=== PATIENT | female | born 1930 | race Caucasian/White ===

== ENCOUNTER 2017-06-18 12:56 | Inpatient (IN) | payer MEDICARE, OTHER ==
[~2017-06-18] VITALS: Ht 160 cm; Wt 72.6 kg
[2017-06-18] MEDS ORDERED: Morphine Sulfate 4mg/ml Inj IVP ONE (13:30)
[2017-06-18] MEDS ORDERED: Ketorolac 30mg Inj IV ONE (13:30)
[2017-06-18 13:50] LABS: BASOPHILS % (AUTO) 0.6 % (0.0-2.0); EOSINOPHILS % (AUTO) 0.9 % (0.0-3.0); HEMATOCRIT 36.8 % (37.0-47.0); HEMOGLOBIN 12.3 G/DL (12.0-16.0); LYMPHOCYTES % (AUTO) 20.5 % (20.0-45.0); MEAN CORPUSCULAR VOLUME 87 FL (80-99); MONOCYTES % (AUTO) 7.5 % (1.0-10.0); NEUTROPHILS % (AUTO) 70.5 % (45.0-75.0); PLATELET COUNT 185 K/UL (150-450); RED BLOOD COUNT 4.23 M/UL (4.20-5.40); RED CELL DISTRIBUTION WIDTH 13.2 % (11.6-14.8); WHITE BLOOD COUNT 9.3 K/UL (4.8-10.8)
[2017-06-18 13:59] LABS: ANION GAP 7 mmol/L (5-15); BLOOD UREA NITROGEN 35 mg/dL (7-18); CALCIUM 9.4 MG/DL (8.5-10.1); CARBON DIOXIDE 27 MMOL/L (21-32); CHLORIDE 106 MMOL/L (98-107); CREATININE 1.4 MG/DL (0.55-1.30); SODIUM 140 MMOL/L (136-145)
[2017-06-18 14:00] VITALS: BP 127/61
--- NOTE | 2017-06-18 14:01 | Diagnostic Imaging Report ---
Indication: Dyspnea Comparison: None A single view chest radiograph was obtained. Findings: No definite infiltrate or pulmonary vascular congestion identified. The heart is enlarged. The aorta is mildly enlarged consistent with atherosclerotic vascular disease. The bones are osteopenic. Impression: No acute disease
[2017-06-18 14:09] LABS: ALANINE AMINOTRANSFERASE 19 U/L (12-78); ALBUMIN 3.3 G/DL (3.4-5.0); ALBUMIN/GLOBULIN RATIO 0.8 (1.0-2.7); ALKALINE PHOSPHATASE 117 U/L (46-116); ASPARTATE AMINO TRANSFERASE 16 U/L (15-37); BILIRUBIN,TOTAL 0.4 MG/DL (0.2-1.0); CREATINE KINASE 34 U/L (26-308)
[2017-06-18 14:21] LABS: APPEARANCE,URINE SLIGHTLY CLOUDY; BILIRUBIN, URINE NEGATIVE (NEGATIVE); COLOR,URINE PALE YELLOW; GLUCOSE, URINE (UA) NEGATIVE (NEGATIVE); KETONES,URINE NEGATIVE (NEGATIVE); LEUKOCYTE ESTERASE ,URINE 3+ (NEGATIVE); NITRITE,URINE NEGATIVE (NEGATIVE); PH,URINE 5 (4.5-8.0); PROTEIN,URINE 1+ (NEGATIVE); UROBILINOGEN,URINE NORMAL MG/DL (0.0-1.0)
--- NOTE | 2017-06-18 14:42 | Diagnostic Imaging Report ---
Indication: Chest pain. Trauma Technique: Continuous helical transaxial imaging of the chest was obtained from the thoracic inlet to the upper abdomen. No intravenous contrast was administered. Coronal 2-D reformats were also obtained. Total Dose length Product (DLP): 760.[address] Dose Index Volume (CTDIvol): 19.35 mGy Comparison: none Findings: There is no pneumothorax. Lungs are essentially clear with the exception of some minimal basilar scarring or atelectasis. No mediastinal fluid or hematoma identified. The aorta is moderately calcified and ectatic. There are calcifications in the mediastinum and willis which may be on the basis of old granulomatous disease. There is a moderate size hiatal hernia. Osseous structures are grossly intact. There is a fracture of the L1 and L2 vertebra. These appear old. Endplate spurs are noted in the midportion of the thoracic spine. The bones are osteopenic. There is slight misregistration on the sagittal reconstructions with regard to the sternum, which is not likely fractured. IMPRESSION: No acute injury identified. Atherosclerotic disease Degenerative changes of the spine. Lumbar vertebral fractures probably old. Old granulomatous disease Hiatal hernia The CT scanner at [facility] is accredited by the [employer] and the scans are performed using dose optimization techniques as appropriate to a performed exam including Automatic Exposure control.
[2017-06-18] MEDS ORDERED: HYDROmorphone 1mg/ml Carpuject IVP ONE (15:15)
[2017-06-18] MEDS ORDERED: 1/2 NS 1000ml IV ONE (15:26)
[2017-06-18 16:00] VITALS: BP 129/65
[2017-06-18] MEDS ORDERED: Nitroglycerin Subl 0.4mg tab SL PRN (17:00)
[2017-06-18] MEDS ORDERED: Morphine Sulfate 2mg/ml Inj IVP PRN (17:00)
--- NOTE | 2017-06-18 17:01 | Emergency Room Report ---
History of Present Illness General Chief Complaint: Chest Pain Source: Patient, Family Member Present Illness HPI Patient fell yesterday. This was non-syncopal. She caught herself. Unclear if hit chest or had force on chest due to catching self. Since that time she's had severe positional and exertional chest pain that's sternal. It's caused weakness. She denies any fevers or chills. There was no loss of consciousness. The pain is severe when she moves or touches the area. Pain rated 10/10, sharp and aching. No medicine taken for pain. She had a CT of her chest in the past which revealed an abnormality which daughter states is close to area where this pain is. No cough, dyspnea. No other joint pain. Patient has history of atrial fibrillation. She is not taking any blood thinners at this time. No NVD, abdominal pain dysuria, change in bowels, other joint or head pain. R eye blindness Allergies: Coded Allergies: No Known Allergies (Unverified , 06/18/17) Patient History Past Medical History: see triage record, AFib Social History: Denies: smoking, alcohol use, drug use Social History Narrative with Daughter - speaks Gu[place]ese Last Menstrual Period: n/a Now: No Reviewed Nursing Documentation: PMH: Agreed; PSxH: Agreed Nursing Documentation-PMH Hx Hypertension: Yes Review of Systems All Other Systems: negative except mentioned in HPI Physical Exam Vital Signs Date Time Temp Pulse Resp B/P (MAP) Pulse Ox O2 Delivery O2 Flow Rate FiO2 06/18/17 12:50 98.0 88 16 116/54 99 Room Air 98.1 Sp02 EP Interpretation: reviewed, normal General Appearance: no apparent distress, alert, thin, other - frail, Chronically Ill Head: normocephalic Eyes: right eye other - opacity of R cornea ENT: moist mucus membranes Neck: supple, no bony tend Respiratory: lungs clear, normal breath sounds, other - severe CWT sternum without crepitus Cardiovascular #1: regular rate, rhythm Cardiovascular #2: 2+ radial (R) Gastrointestinal: normal inspection, normal bowel sounds, non tender, no mass, non-distended, scaphoid Genitourinary: no CVA tenderness Musculoskeletal: back normal, normal range of motion, pelvis stable Neurologic: alert, motor strength/tone normal, DTRs symmetric, sensory intact, oriented - X2 Psychiatric: mood/affect normal Skin: normal inspection, warm/dry Medical Decision Making Diagnostic Impression: Primary Impression: Chest pain Qualified Codes: R07.9 - Chest pain, unspecified Additional Impressions: UTI (urinary tract infection) Qualified Codes: N30.00 - Acute cystitis without hematuria Sternal fracture Qualified Codes: S22.20XA - Unspecified fracture of sternum, initial encounter for closed fracture ER Course The patient presents with chest pain after fall. The differential includes acute myocardial infarction acute coronary syndrome, costochondritis, sternal fracture, costochondral fracture, retrosternal hematoma, sternomanubrial dissociation amongst others. The pain is quite severe at this time. Evaluation B with EKG, chest x-ray, CT of the chest and labs. EKG without injury. CXR with tortuous aorta. CT allegedly with no fx or injury. Labs with renal insufficiency, pyuria. Patient still with significant pain. Initially refused repeat morphine. Finally took repeat dose with decrease in pain, but with nausea. Zofran repeated with improvement. Discussed with daughter my high suspicion of fracture versus other sternal injury. She is requesting MRI. Also patient needs repeat troponins and somewhat exertional quality of chest pain. Admit telemetry, Dr. Oakley. Discussed with Dr. Cameron. Laboratory Tests Test 06/18/17 13:34 06/18/17 13:55 06/18/17 20:00 White Blood Count 9.3 K/UL (4.8-10.8) Red Blood Count 4.23 M/UL (4.20-5.40) Hemoglobin 12.3 G/DL (12.0-16.0) Hematocrit 36.8 % (37.0-47.0) L Mean Corpuscular Volume 87 FL (80-99) Mean Corpuscular Hemoglobin 29.1 PG (27.0-31.0) Mean Corpuscular Hemoglobin Concent 33.4 G/DL (32.0-36.0) Red Cell Distribution Width 13.2 % (11.6-14.8) Platelet Count 185 K/UL (150-450) Mean Platelet Volume 8.9 FL (6.5-10.1) Neutrophils (%) (Auto) 70.5 % (45.0-75.0) Lymphocytes (%) (Auto) 20.5 % (20.0-45.0) Monocytes (%) (Auto) 7.5 % (1.0-10.0) Eosinophils (%) (Auto) 0.9 % (0.0-3.0) Basophils (%) (Auto) 0.6 % (0.0-2.0) Prothrombin Time 10.4 SEC (9.30-11.50) Prothrombin Time INR 1.0 (0.9-1.1) PTT 30 SEC (23-33) Sodium Level 140 MMOL/L (136-145) Potassium Level 4.0 MMOL/L (3.5-5.1) Chloride Level 106 MMOL/L (98-107) Carbon Dioxide Level 27 MMOL/L (21-32) Anion Gap 7 mmol/L (5-15) Blood Urea Nitrogen 35 mg/dL (7-18) H Creatinine 1.4 MG/DL (0.55-1.30) H Estimate Glomerular Filtration Rate mL/min (>60) Glucose Level 118 MG/DL (74-106) H Calcium Level 9.4 MG/DL (8.5-10.1) Total Bilirubin 0.4 MG/DL (0.2-1.0) Aspartate Amino Transferase (AST) 16 U/L (15-37) Alanine Aminotransferase (ALT) 19 U/L (12-78) Alkaline Phosphatase 117 U/L (46-116) H Total Creatine Kinase 34 U/L (26-308) Troponin I 0.000 ng/mL (0.000-0.056) 0.000 ng/mL (0.000-0.056) Pro-B-Type Natriuretic Peptide 501 pg/mL (0-125) H Total Protein 7.2 G/DL (6.4-8.2) Albumin 3.3 G/DL (3.4-5.0) L Globulin 3.9 g/dL Albumin/Globulin Ratio 0.8 (1.0-2.7) L Urine Color Pale yellow Urine Appearance Slightly cloudy Urine pH 5 (4.5-8.0) Urine Specific [place] 1.015 (1.005-1.035) Urine Protein 1+ (NEGATIVE) H Urine Glucose (UA) Negative (NEGATIVE) Urine Ketones Negative (NEGATIVE) Urine Occult Blood Negative (NEGATIVE) Urine Nitrite Negative (NEGATIVE) Urine Bilirubin Negative (NEGATIVE) Urine Urobilinogen Normal MG/DL (0.0-1.0) Urine Leukocyte Esterase 3+ (NEGATIVE) H Urine RBC 2-4 /HPF (0 - 2) H Urine WBC 30-40 /HPF (0 - 2) H Urine Squamous Epithelial Cells Few /LPF (NONE/OCC) Urine Bacteria Few /HPF (NONE) EKG Diagnostic Results Rate: normal Rhythm: NSR ST Segments: no acute changes Rhythm Strip Diag. Results EP Interpretation: yes Rhythm: NSR, no PVC's, no ectopy Chest X-Ray Diagnostic Results Chest X-Ray Diagnostic Results : Chest X-Ray Ordered: Yes # of Views/Limited/Complete: 1 View Indication: Chest Pain EP Interpretation: Yes CT/MRI/US Diagnostic Results CT/MRI/US Diagnostic Results : Imaging Test Ordered: chest Impression No significant pathology identified Last Vital Signs Date Time Temp Pulse Resp B/P (MAP) Pulse Ox O2 Delivery O2 Flow Rate FiO2 06/18/17 14:05 98.0 06/18/17 14:00 72 20 127/61 98 Room Air Status: improved Disposition: ADMITTED INPATIENT Condition: Serious Referrals: NON PHYSICIAN (PCP) Alfonso Callejas M.D. Jun 18, 2017 17:01
[2017-06-18] MEDS ORDERED: PRILOSEC OTC20 MG ORAL (17:10)
[2017-06-18] MEDS ORDERED: LEVOTHYROXINE75 MCG ORAL (17:10)
[2017-06-18] MEDS ORDERED: NORVASC5 MG ORAL (17:10)
[2017-06-18] MEDS ORDERED: Mylanta II UD 30ml ORAL PRN (17:15)
[2017-06-18] MEDS ORDERED: Albuterol/Ipratropium 3ml neb HHN PRN (17:16)
[2017-06-18] MEDS ORDERED: Norco 5mg/325mg tab ORAL PRN (17:20)
[2017-06-18] MEDS ORDERED: Morphine Sulfate 4mg/ml Inj IVP PRN (17:20)
[2017-06-18] MEDS ORDERED: HYDROcodone/Acetamin 7.5/325 tab ORAL PRN (17:21)
[2017-06-18] MEDS ORDERED: Miralax 17gm pkt ORAL PRN (17:22)
[2017-06-18 20:00] VITALS: BP 155/68
[2017-06-18] MEDS: Docusate 100mg cap ORAL SCH ×2 (20:50→20:57)
[2017-06-18] MEDS: Heparin 5000 units/ml inj SUBQ SCH ×2 (20:51→20:57)
[2017-06-18] MEDS ORDERED: cefTRIAXone 1 GM in D5W 55 ML IVPB ONE (23:15)
[2017-06-19] VITALS: BP 137/73
[2017-06-19 04:00] VITALS: BP 136/71
[2017-06-19 08:00] VITALS: BP 130/76
[2017-06-19] MEDS: Aspirin Baby 81mg ORAL SCH (08:32)
[2017-06-19] MEDS: Docusate 100mg cap ORAL SCH ×2 (08:33→21:53)
[2017-06-19] MEDS: Heparin 5000 units/ml inj SUBQ SCH ×2 (08:36→21:58)
[2017-06-19 09:07] LABS: EOSINOPHILS % (AUTO) 1.2 % (0.0-3.0); HEMATOCRIT 37.8 % (37.0-47.0); HEMOGLOBIN 12.7 G/DL (12.0-16.0); LYMPHOCYTES % (AUTO) 21.3 % (20.0-45.0); MEAN CORPUSCULAR VOLUME 87 FL (80-99); MONOCYTES % (AUTO) 8.5 % (1.0-10.0); NEUTROPHILS % (AUTO) 67.9 % (45.0-75.0); PLATELET COUNT 179 K/UL (150-450); RED BLOOD COUNT 4.35 M/UL (4.20-5.40); RED CELL DISTRIBUTION WIDTH 13.2 % (11.6-14.8); WHITE BLOOD COUNT 4.6 K/UL (4.8-10.8)
[2017-06-19 09:44] LABS: ANION GAP 7 mmol/L (5-15); BLOOD UREA NITROGEN 28 mg/dL (7-18); CALCIUM 8.6 MG/DL (8.5-10.1); CARBON DIOXIDE 29 MMOL/L (21-32); CHLORIDE 103 MMOL/L (98-107); CHOLESTEROL 165 MG/DL (< 200); CREATININE 1.3 MG/DL (0.55-1.30); HDL CHOLESTEROL 54 MG/DL (40-60); POTASSIUM 3.9 MMOL/L (3.5-5.1); SODIUM 139 MMOL/L (136-145); TRIGLYCERIDES 74 MG/DL (30-150)
--- NOTE | 2017-06-19 09:48 | Cardiac Electrophysiology PN ---
Subjective Subjective [id number] Objective Last 24 Hour Vital Signs Date Time Temp Pulse Resp B/P (MAP) Pulse Ox O2 Delivery O2 Flow Rate FiO2 06/19/17 07:40 71 16 Room Air 21 06/19/17 04:00 63 06/19/17 04:00 97.7 67 20 136/71 98 Room Air 97.7 06/19/17 00:00 64 06/19/17 00:00 96.8 64 20 137/73 94 Room Air 96.8 06/18/17 20:00 97.3 69 20 155/68 96 Room Air 97.3 06/18/17 20:00 70 06/18/17 17:52 98.0 76 20 129/65 100 Room Air 98.0 06/18/17 16:00 76 20 129/65 100 Room Air 06/18/17 14:05 98.0 06/18/17 14:05 98.0 06/18/17 14:00 72 20 127/61 98 Room Air 06/18/17 14:00 16 Room Air 06/18/17 13:26 98.0 06/18/17 13:26 98.0 06/18/17 13:15 85 17 Room Air 06/18/17 12:50 98.0 88 16 116/54 99 Room Air 98.1 Intake and Output 06/18/17 06/19/17 19:00 07:00 Intake Total 30 ml 949 ml Output Total 150 ml Balance -120 ml 949 ml Intake Oral 80 ml IV Total 30 ml 869 ml Output Urine Total 100 ml Emesis 50 ml # Voids 2 3 Laboratory Tests Test 06/18/17 13:34 06/18/17 13:55 06/18/17 20:00 06/19/17 08:30 White Blood Count 9.3 K/UL (4.8-10.8) 4.6 K/UL (4.8-10.8) #L Red Blood Count 4.23 M/UL (4.20-5.40) 4.35 M/UL (4.20-5.40) Hemoglobin 12.3 G/DL (12.0-16.0) 12.7 G/DL (12.0-16.0) Hematocrit 36.8 % (37.0-47.0) L 37.8 % (37.0-47.0) Mean Corpuscular Volume 87 FL (80-99) 87 FL (80-99) Mean Corpuscular Hemoglobin 29.1 PG (27.0-31.0) 29.1 PG (27.0-31.0) Mean Corpuscular Hemoglobin Concent 33.4 G/DL (32.0-36.0) 33.5 G/DL (32.0-36.0) Red Cell Distribution Width 13.2 % (11.6-14.8) 13.2 % (11.6-14.8) Platelet Count 185 K/UL (150-450) 179 K/UL (150-450) Mean Platelet Volume 8.9 FL (6.5-10.1) 9.4 FL (6.5-10.1) Neutrophils (%) (Auto) 70.5 % (45.0-75.0) 67.9 % (45.0-75.0) Lymphocytes (%) (Auto) 20.5 % (20.0-45.0) 21.3 % (20.0-45.0) Monocytes (%) (Auto) 7.5 % (1.0-10.0) 8.5 % (1.0-10.0) Eosinophils (%) (Auto) 0.9 % (0.0-3.0) 1.2 % (0.0-3.0) Basophils (%) (Auto) 0.6 % (0.0-2.0) 1.0 % (0.0-2.0) Prothrombin Time 10.4 SEC (9.30-11.50) Prothromb Time International Ratio 1.0 (0.9-1.1) Activated Partial Thromboplast Time 30 SEC (23-33) Sodium Level 140 MMOL/L (136-145) Pending Potassium Level 4.0 MMOL/L (3.5-5.1) Pending Chloride Level 106 MMOL/L (98-107) Pending Carbon Dioxide Level 27 MMOL/L (21-32) Pending Anion Gap 7 mmol/L (5-15) Blood Urea Nitrogen 35 mg/dL (7-18) H Pending Creatinine 1.4 MG/DL (0.55-1.30) H Pending Estimat Glomerular Filtration Rate mL/min (>60) Pending Glucose Level 118 MG/DL (74-106) H Pending Calcium Level 9.4 MG/DL (8.5-10.1) Pending Total Bilirubin 0.4 MG/DL (0.2-1.0) Aspartate Amino Transf (AST/SGOT) 16 U/L (15-37) Alanine Aminotransferase (ALT/SGPT) 19 U/L (12-78) Alkaline Phosphatase 117 U/L (46-116) H Total Creatine Kinase 34 U/L (26-308) Troponin I 0.000 ng/mL (0.000-0.056) 0.000 ng/mL (0.000-0.056) 0.003 ng/mL (0.000-0.056) Pro-B-Type Natriuretic Peptide 501 pg/mL (0-125) H Total Protein 7.2 G/DL (6.4-8.2) Albumin 3.3 G/DL (3.4-5.0) L Globulin 3.9 g/dL Albumin/Globulin Ratio 0.8 (1.0-2.7) L Urine Color Pale yellow Urine Appearance Slightly cloudy Urine pH 5 (4.5-8.0) Urine Specific [place] 1.015 (1.005-1.035) Urine Protein 1+ (NEGATIVE) H Urine Glucose (UA) Negative (NEGATIVE) Urine Ketones Negative (NEGATIVE) Urine Occult Blood Negative (NEGATIVE) Urine Nitrite Negative (NEGATIVE) Urine Bilirubin Negative (NEGATIVE) Urine Urobilinogen Normal MG/DL (0.0-1.0) Urine Leukocyte Esterase 3+ (NEGATIVE) H Urine RBC 2-4 /HPF (0 - 2) H Urine WBC 30-40 /HPF (0 - 2) H Urine Squamous Epithelial Cells Few /LPF (NONE/OCC) Urine Bacteria Few /HPF (NONE) Hemoglobin A1c 5.5 % (4.3-6.0) Magnesium Level Pending Triglycerides Level Pending Cholesterol Level Pending LDL Cholesterol Pending HDL Cholesterol Pending Cholesterol/HDL Ratio Pending Thyroid Stimulating Hormone (TSH) Pending Fortino Gonzalez MD Jun 19, 2017 09:48
[2017-06-19] MEDS ORDERED: Lexiscan 0.4mg/5ml syringe IV PRN (10:00)
--- NOTE | 2017-06-19 11:25 | History and Physical ---
History of Present Illness General Date patient seen: Jun 19, 2017 Time patient seen: 11:25 Reason for Hospitalization: Chest Pain Present Illness HPI 86y/o female with pmh of HTN, hypothyroidism GERD who presents with chest pain s /p fall. Per daughter, pt fell while in kitched. She may have tripped over a rug. Denies dizziness, chest pain, SOB prior to or during fall. She was able to catch herself. No LOC or head truama. She had chest pain afterwards described as sharp substernal pain w/o radiation. Unclear if hit chest or had force on chest due to catching self. Since that time she's had severe positional and exertional chest pain that's substernal. Pain is 10/10, severe drew when she moves or touches the area. Also w/ pain when taking a deep breath in. Denies f/c , n/v, d/c, SOB, abd pain, cough. In ED, CXR and CT chest showed no e/o acute abnormality. Daughter requesting MRI chest. Allergies: Coded Allergies: No Known Allergies (Unverified , 06/18/17) Medication History Scheduled Amlodipine Besylate (Norvasc), 5 MG ORAL DAILY, (Reported) Levothyroxine Sodium* (Levothyroxine Sodium*), 75 MCG ORAL DAILY, (Reported) Omeprazole Magnesium (Prilosec Otc), 20 MG ORAL DAILY, (Reported) Patient History History Provided By: Patient, Family Member, Medical Record Healthcare decision maker N Resuscitation status Full Code Advanced Directive on File Past Medical/Surgical History Past Medical/Surgical History: (1) Hypothyroidism (2) GERD (gastroesophageal reflux disease) (3) HTN (hypertension) Family History Family History: Patient reports no known family medical history. Social History Social History: (1) Lives with family Review of Systems Constitutional: Reports: weakness Eye: Reports: no symptoms ENT: Reports: no symptoms Respiratory: Reports: no symptoms Cardiovascular: Reports: chest pain Gastrointestinal: Reports: no symptoms Genitourinary: Reports: no symptoms Musculoskeletal: Reports: muscle pain Skin: Reports: no symptoms Psychiatric: Reports: no symptoms Neurological: Reports: no symptoms Endocrine: Reports: no symptoms Hematologic/Lymphatic: Reports: no symptoms Physical Exam Physical Exam Narrative General: alert, cooperative, no distress, appears stated age Head: normocephalic, without obvious abnormality, atraumatic Eyes: conjunctivae/corneas clear. PERRL, EOM's intact Throat: lips, mucosa, and tongue normal. MMM Neck: supple, symmetrical, trachea midline, and no JVD Lungs: clear to auscultation bilaterally Heart: regular rate and rhythm, S1, S2 normal, no murmur, click, rub or gallop, +TTP of substernal area Abdomen: soft, non-tender, non-distended, bowel sounds normal; no masses or organomegaly Extremities: extremities normal, atraumatic, no cyanosis or edema Pulses: 2+ and symmetric Skin: skin color, texture, turgor normal; no rashes or lesions Neurologic: grossly normal, no focal deficits Last 24 Hour Vital Signs Date Time Temp Pulse Resp B/P (MAP) Pulse Ox O2 Delivery O2 Flow Rate FiO2 06/19/17 08:00 98.0 72 18 130/76 98 Room Air 98.0 06/19/17 07:40 71 16 Room Air 21 06/19/17 04:00 63 06/19/17 04:00 97.7 67 20 136/71 98 Room Air 97.7 06/19/17 00:00 64 06/19/17 00:00 96.8 64 20 137/73 94 Room Air 96.8 06/18/17 20:00 97.3 69 20 155/68 96 Room Air 97.3 06/18/17 20:00 70 06/18/17 17:52 98.0 76 20 129/65 100 Room Air 98.0 06/18/17 16:00 76 20 129/65 100 Room Air 06/18/17 14:05 98.0 06/18/17 14:05 98.0 06/18/17 14:00 72 20 127/61 98 Room Air 06/18/17 14:00 16 Room Air 06/18/17 13:26 98.0 06/18/17 13:26 98.0 06/18/17 13:15 85 17 Room Air 06/18/17 12:50 98.0 88 16 116/54 99 Room Air 98.1 Intake and Output 06/18/17 06/19/17 19:00 07:00 Intake Total 30 ml 949 ml Output Total 150 ml Balance -120 ml 949 ml Intake Oral 80 ml IV Total 30 ml 869 ml Output Urine Total 100 ml Emesis 50 ml # Voids 2 3 Laboratory Tests Test 06/18/17 13:34 06/18/17 13:55 06/18/17 20:00 06/19/17 08:30 White Blood Count 9.3 K/UL (4.8-10.8) 4.6 K/UL (4.8-10.8) #L Red Blood Count 4.23 M/UL (4.20-5.40) 4.35 M/UL (4.20-5.40) Hemoglobin 12.3 G/DL (12.0-16.0) 12.7 G/DL (12.0-16.0) Hematocrit 36.8 % (37.0-47.0) L 37.8 % (37.0-47.0) Mean Corpuscular Volume 87 FL (80-99) 87 FL (80-99) Mean Corpuscular Hemoglobin 29.1 PG (27.0-31.0) 29.1 PG (27.0-31.0) Mean Corpuscular Hemoglobin Concent 33.4 G/DL (32.0-36.0) 33.5 G/DL (32.0-36.0) Red Cell Distribution Width 13.2 % (11.6-14.8) 13.2 % (11.6-14.8) Platelet Count 185 K/UL (150-450) 179 K/UL (150-450) Mean Platelet Volume 8.9 FL (6.5-10.1) 9.4 FL (6.5-10.1) Neutrophils (%) (Auto) 70.5 % (45.0-75.0) 67.9 % (45.0-75.0) Lymphocytes (%) (Auto) 20.5 % (20.0-45.0) 21.3 % (20.0-45.0) Monocytes (%) (Auto) 7.5 % (1.0-10.0) 8.5 % (1.0-10.0) Eosinophils (%) (Auto) 0.9 % (0.0-3.0) 1.2 % (0.0-3.0) Basophils (%) (Auto) 0.6 % (0.0-2.0) 1.0 % (0.0-2.0) Prothrombin Time 10.4 SEC (9.30-11.50) Prothromb Time International Ratio 1.0 (0.9-1.1) Activated Partial Thromboplast Time 30 SEC (23-33) Sodium Level 140 MMOL/L (136-145) 139 MMOL/L (136-145) Potassium Level 4.0 MMOL/L (3.5-5.1) 3.9 MMOL/L (3.5-5.1) Chloride Level 106 MMOL/L (98-107) 103 MMOL/L (98-107) Carbon Dioxide Level 27 MMOL/L (21-32) 29 MMOL/L (21-32) Anion Gap 7 mmol/L (5-15) 7 mmol/L (5-15) Blood Urea Nitrogen 35 mg/dL (7-18) H 28 mg/dL (7-18) H Creatinine 1.4 MG/DL (0.55-1.30) H 1.3 MG/DL (0.55-1.30) Estimat Glomerular Filtration Rate mL/min (>60) mL/min (>60) Glucose Level 118 MG/DL (74-106) H 93 MG/DL (74-106) Calcium Level 9.4 MG/DL (8.5-10.1) 8.6 MG/DL (8.5-10.1) Total Bilirubin 0.4 MG/DL (0.2-1.0) Aspartate Amino Transf (AST/SGOT) 16 U/L (15-37) Alanine Aminotransferase (ALT/SGPT) 19 U/L (12-78) Alkaline Phosphatase 117 U/L (46-116) H Total Creatine Kinase 34 U/L (26-308) Troponin I 0.000 ng/mL (0.000-0.056) 0.000 ng/mL (0.000-0.056) 0.003 ng/mL (0.000-0.056) Pro-B-Type Natriuretic Peptide 501 pg/mL (0-125) H Total Protein 7.2 G/DL (6.4-8.2) Albumin 3.3 G/DL (3.4-5.0) L Globulin 3.9 g/dL Albumin/Globulin Ratio 0.8 (1.0-2.7) L Urine Color Pale yellow Urine Appearance Slightly cloudy Urine pH 5 (4.5-8.0) Urine Specific [place] 1.015 (1.005-1.035) Urine Protein 1+ (NEGATIVE) H Urine Glucose (UA) Negative (NEGATIVE) Urine Ketones Negative (NEGATIVE) Urine Occult Blood Negative (NEGATIVE) Urine Nitrite Negative (NEGATIVE) Urine Bilirubin Negative (NEGATIVE) Urine Urobilinogen Normal MG/DL (0.0-1.0) Urine Leukocyte Esterase 3+ (NEGATIVE) H Urine RBC 2-4 /HPF (0 - 2) H Urine WBC 30-40 /HPF (0 - 2) H Urine Squamous Epithelial Cells Few /LPF (NONE/OCC) Urine Bacteria Few /HPF (NONE) Hemoglobin A1c 5.5 % (4.3-6.0) Magnesium Level 1.8 MG/DL (1.8-2.4) Triglycerides Level 74 MG/DL (30-150) Cholesterol Level 165 MG/DL (< 200) LDL Cholesterol 86 mg/dL (<100) HDL Cholesterol 54 MG/DL (40-60) Cholesterol/HDL Ratio 3.1 (3.3-4.4) L Thyroid Stimulating Hormone (TSH) 0.723 uiU/mL (0.358-3.740) Height (Feet): 5 Height (Inches): 3.00 Weight (Pounds): 160 Medications Current Medications Medications (Trade) Dose Ordered Sig/Mya Route PRN Reason Start Time Stop Time Status Last Admin Dose Admin Acetaminophen (Tylenol) 650 mg Q4H PRN ORAL Mild Pain (Pain Scale 1-3) 06/18/17 17:15 07/18/17 17:14 Acetaminophen (Tylenol) 650 mg Q4H PRN ORAL fever 06/18/17 17:15 07/18/17 17:14 Acetaminophen/ Hydrocodone Bitart ([place] 5/325) 1 tab Q4H PRN ORAL Moderate Pain (Pain Scale 4-6) 06/18/17 17:20 06/25/17 17:19 Acetaminophen/ Hydrocodone Bitart ([place] 7.5/325) 1 tab Q4H PRN ORAL severe pain 06/18/17 17:21 06/25/17 17:20 Al Hydroxide/Mg Hydroxide (Mylanta II) 30 ml Q6H PRN ORAL dyspepsia 06/18/17 17:15 07/18/17 17:14 Albuterol/ Ipratropium (Albuterol/ Ipratropium) 3 ml Q4H PRN HHN Shortness of Breath 06/18/17 17:16 06/23/17 17:15 Amlodipine Besylate (Norvasc) 5 mg DAILY ORAL 06/20/17 12:00 07/20/17 11:59 UNV Aspirin (ASA) 81 mg DAILY ORAL 06/19/17 09:00 07/19/17 08:59 06/19/17 08:32 Bisacodyl (Dulcolax) 10 mg DAILYPRN PRN RECTAL Constipation (2ND LINE) 06/18/17 17:30 07/18/17 17:14 Dextrose (Dextrose 50%) 25 ml STAT PRN IV BS 60-69mg/dl 06/18/17 17:19 07/18/17 17:18 Dextrose (Dextrose 50%) 50 ml STAT PRN IV BS less than 60mg/dl 06/18/17 17:00 07/18/17 16:59 Docusate Sodium (Colace) 100 mg EVERY 12 HOURS ORAL 06/18/17 21:00 07/18/17 20:59 06/19/17 08:33 Famotidine (Pepcid I.v.) 20 mg Q12HR IVP 06/18/17 21:00 07/18/17 20:59 06/19/17 08:33 Heparin Sodium (Porcine) (Heparin 5000 units/ml) 5,000 units EVERY 12 HOURS SUBQ 06/18/17 21:00 07/18/17 20:59 06/19/17 08:36 Levothyroxine Sodium (Synthroid) 75 mcg DAILY ORAL 06/20/17 06:30 07/20/17 06:29 UNV Lidocaine (Lidoderm 5% PATCH) 1 patch Q24H TDERMAL 06/18/17 18:00 07/18/17 17:59 06/18/17 18:37 Lorazepam (Ativan) 1 mg Q6H PRN ORAL For Anxiety 06/19/17 10:30 06/26/17 10:29 Morphine Sulfate (Morphine Sulfate) 4 mg Q4H PRN IVP breakthrough pain 06/18/17 17:20 06/25/17 17:19 Nitroglycerin (Ntg) 0.4 mg Q5M PRN SL Prn Chest Pain 06/18/17 17:00 07/18/17 16:59 Ondansetron HCl (Zofran) 4 mg Q6H PRN IVP Nausea & Vomiting 06/18/17 17:18 07/18/17 17:17 Pantoprazole (Protonix) 40 mg DAILY ORAL 06/20/17 09:00 07/20/17 08:59 UNV Polyethylene Glycol (Miralax) 17 gm DAILYPRN PRN ORAL Constipation (1ST LINE) 06/18/17 17:22 07/18/17 17:21 Regadenoson (Lexiscan) 0.4 mg ONCE PRN IV stress test 06/19/17 10:00 06/19/17 23:59 Sodium Chloride 1,000 ml @ 75 mls/hr [id number] IV 06/18/17 17:30 07/18/17 17:29 06/19/17 06:25 Assessment/Plan Problem List: (1) Chest pain ICD Codes: R07.9 - Chest pain, unspecified SNOMED: 84278594 Qualifiers: Qualified Codes: R07.9 - Chest pain, unspecified (2) UTI (urinary tract infection) ICD Codes: N39.0 - Urinary tract infection, site not specified SNOMED: 37829696 Qualifiers: Qualified Codes: N30.00 - Acute cystitis without hematuria (3) Hypothyroidism ICD Codes: E03.9 - Hypothyroidism, unspecified SNOMED: 26032200 (4) GERD (gastroesophageal reflux disease) ICD Codes: K21.9 - Gastro-esophageal reflux disease without esophagitis SNOMED: 610456552 (5) HTN (hypertension) ICD Codes: I10 - Essential (primary) hypertension SNOMED: 65998669 Status: stable Assessment/Plan Admit to tele CXR and CT chest on admit reviewed. Daughter requesting MRI chest. D/w radiologist who does not recommend MRI chest. Pt needs to be able to hold breath for a while for test to have good results. Recommends repeat CT chest specifically looking at sternal area to reassess for fracture Repeat CT chest ordered. Radiologist to look closely at sternal area this time Trend trop/EKG Check TTE Cardiology consulted Empiric ceftriaxone for UTI (06/18-) F/u urine culture Pain control, bowel regimen Trial of lidocaine patch to area Supportive care PT/OT eval Possible d/c tomorrow pending repeat CT chest results and pain control DVT Prophylaxis: SCD, HSQ Code Status: Full Hospital Classification Declaration: Based on this initial evaluation, and depending on the patient's clinical course, I anticipate that this patient will require hospitalization for 1-3 days for chest pain, pain control, and close respiratory/hemodynamic monitoring. Disposition: Once the patient is stable to leave the hospital, I anticipate the patient will likely be discharged to the following environment: home with HH vs SNF I spent 71 minutes on this patient's case, and >50% was dedicated to counseling and/or care coordination. Discussed with patient/family, nursing staff, SW/CM, cardiology, radiology regarding clinical status, treatment course, and disposition planning. Time of note may not reflect time of encounter. Nisha Almanzar M.D. Jun 19, 2017 11:25
[2017-06-19] MEDS ORDERED: traMADol 50mg tab ORAL PRN (11:30)
[2017-06-19] MEDS: LORazepam 1mg tab ORAL PRN (11:35)
[2017-06-19 12:00] VITALS: BP 133/98
[2017-06-19] MEDS: Acetaminophen 500mg (ES) tab ORAL SCH ×3 (12:21→17:33)
--- NOTE | 2017-06-19 14:30 | Diagnostic Imaging Report ---
Indication: Persistent chest pain. History of recent trauma Technique: Continuous helical transaxial imaging of the sternum was obtained. No intravenous contrast was administered. Coronal 2-D reformats were also obtained in high resolution within the sagittal and coronal planes. Automatic exposure control utilized. Total Dose length Product (DLP): 449.[address] Dose Index Volume (CTDIvol): 15.27 mGy Comparison: 06/18/2017 CT chest Findings: The quality of the study is good and adequate for diagnosis. There is a 2 mm step-off noted along the posterior margin of the lower sternum, appreciated only on the sagittal reconstructed image (for example series 8, images 41-45) consistent with an acute, nondisplaced fracture. The fracture is difficult to appreciate on either the coronal reconstructions or on the source axial images. There is no associated soft tissue swelling. There is no hematoma identified. The bones are diffusely osteopenic. The sternomanubrial joint, the manubrium itself, visualized costal cartilage and the visualized portions of the clavicle heads appear unremarkable. IMPRESSION: Acute nondisplaced fracture involving the lower sternum. The CT scanner at [facility] is accredited by the [employer] and the scans are performed using dose optimization techniques as appropriate to a performed exam including Automatic Exposure control.
[2017-06-19 16:00] VITALS: BP 137/73
--- NOTE | 2017-06-19 18:30 | Consultation ---
DATE OF CONSULTATION: 06/19/2017 CARDIOLOGY CONSULTATION CONSULTING PHYSICIAN: Fortino Gonzalez M.D. REFERRING PHYSICIAN: Ladan Oakley M.D. REASON FOR CONSULTATION: Chest pain. HISTORY OF PRESENT ILLNESS: The patient is an 86-year-old lady, who is [place], was brought to the emergency room after she had a near syncopal episode. The patient apparently fell and cut herself. It is unclear whether there was a force on her chest or head. The patient was admitted as she was having chest pain and her EKG is completely normal. The patient denies loss of consciousness. Her pain is local in the sternum and is very tender when she touches the area. PAST MEDICAL HISTORY: 1. History of chest CT that shows no abnormality. The daughter states really it is an area that she has pain, even though she never had coronary artery disease or myocardial infarction. 2. History of atrial fibrillation, but off any anticoagulation. 3. The patient also has right eye blindness. FAMILY HISTORY: Noncontributory. SOCIAL HISTORY: She lives at home. Does not smoke or drink alcohol. REVIEW OF SYSTEMS: Negative other than what is mentioned in the history of present illness. PHYSICAL EXAMINATION: VITAL SIGNS: Blood pressure is 136/71, pulse 67, respirations 18, and temperature 97.7. HEAD AND NECK: Showed no JVD. Her right eye is blind. LUNGS: Clear. CARDIOVASCULAR: Regular S1 and S2 with no gallop or murmur. The sternum area is very tender to touch. ABDOMEN: Soft. EXTREMITIES: No pitting edema. LABORATORY DATA: White count of 4.6, hemoglobin 12.7, hematocrit 37.8, and platelet count 179,000. Sodium 140, potassium 4.0, BUN of 35, creatinine 1.4, and glucose of 118. Troponin negative x3. BNP is 501. INR is 1. Urinalysis shows 30 to 40 wbc's in the urine and 1+ protein. Her EKG showed normal sinus rhythm as well, normal electrocardiogram. Her telemetry strips also showed just normal sinus rhythm. ASSESSMENT AND PLAN: 1. Chest wall tenderness. The patient was ruled out for myocardial infarction. The chest CT shows fracture of L1-L2 vertebra, although there was no pneumothorax and also shows hiatal hernia. We will get an echocardiogram to evaluate for ejection fraction and wall motion abnormality. The chest x-ray also showed no acute disease. 2. Questionable history of atrial fibrillation, currently in sinus rhythm and is off anticoagulation. 3. Chronic obstructive pulmonary disease, on albuterol. 4. Right eye blindness. Thank you very much, Dr. Oakley, for allowing me to participate in the care of this patient. Please do not hesitate to contact me for any questions regarding my evaluation. Fortino Gonzalez M.D. DR: HAROON JOB#: [id number] CC:
[2017-06-19 20:00] VITALS: BP 136/67
[2017-06-20] VITALS: BP 152/79
[2017-06-20] MEDS: LORazepam 1mg tab ORAL PRN (00:52)
[2017-06-20 04:00] VITALS: BP 135/81
[2017-06-20] MEDS: cefTRIAXone 1 GM in D5W 55 ML IVPB SCH (04:00)
[2017-06-20 08:00] VITALS: BP 155/76
[2017-06-20] MEDS: Aspirin Baby 81mg ORAL SCH (09:05)
[2017-06-20] MEDS: Acetaminophen 500mg (ES) tab ORAL SCH ×3 (09:05→17:18)
[2017-06-20] MEDS: Docusate 100mg cap ORAL SCH ×2 (09:05→20:03)
[2017-06-20] MEDS: Heparin 5000 units/ml inj SUBQ SCH ×2 (09:11→20:11)
[2017-06-20 12:00] VITALS: BP 134/74
[2017-06-20 12:59] LABS: BASOPHILS % (AUTO) 1.1 % (0.0-2.0); EOSINOPHILS % (AUTO) 1.9 % (0.0-3.0); HEMATOCRIT 37.4 % (37.0-47.0); HEMOGLOBIN 12.4 G/DL (12.0-16.0); LYMPHOCYTES % (AUTO) 28.3 % (20.0-45.0); MEAN CORPUSCULAR VOLUME 88 FL (80-99); MONOCYTES % (AUTO) 10.8 % (1.0-10.0); NEUTROPHILS % (AUTO) 57.8 % (45.0-75.0); PLATELET COUNT 163 K/UL (150-450); RED BLOOD COUNT 4.27 M/UL (4.20-5.40); RED CELL DISTRIBUTION WIDTH 13.1 % (11.6-14.8); WHITE BLOOD COUNT 5.1 K/UL (4.8-10.8)
[2017-06-20 13:22] LABS: ANION GAP 7 mmol/L (5-15); BLOOD UREA NITROGEN 28 mg/dL (7-18); CALCIUM 9.4 MG/DL (8.5-10.1); CARBON DIOXIDE 28 MMOL/L (21-32); CHLORIDE 102 MMOL/L (98-107); CREATININE 1.2 MG/DL (0.55-1.30); POTASSIUM 4.5 MMOL/L (3.5-5.1); SODIUM 137 MMOL/L (136-145)
--- NOTE | 2017-06-20 13:37 | Consultation ---
History of Present Illness General Date patient seen: Jun 19, 2017 Chief Complaint: Chest Pain Present Illness HPI 86-year-old lady, who is [place], was brought to the emergency room after she had a near syncopal episode. The patient apparently fell and cut herself. the pt was anxious and easily agitated. the pt stated she needs mri of chest. Allergies: Coded Allergies: No Known Allergies (Unverified , 06/18/17) Medication History Scheduled Amlodipine Besylate (Norvasc), 5 MG ORAL DAILY, (Reported) Levothyroxine Sodium* (Levothyroxine Sodium*), 75 MCG ORAL DAILY, (Reported) Omeprazole Magnesium (Prilosec Otc), 20 MG ORAL DAILY, (Reported) Patient History History Provided By: Patient, Medical Record Healthcare decision maker N Resuscitation status Full Code Advanced Directive on File Past Medical/Surgical History Past Medical/Surgical History: (1) UTI (urinary tract infection) (2) Sternal fracture (3) Hypothyroidism (4) GERD (gastroesophageal reflux disease) (5) HTN (hypertension) (6) Chest pain Review of Systems Psychiatric: Reports: prior hx, anxiety, depressed feelings, emotional problems Physical Exam General Appearance: no apparent distress, alert Neurologic: oriented x 3, responsive, depressed affect Last 24 Hour Vital Signs Date Time Temp Pulse Resp B/P (MAP) Pulse Ox O2 Delivery O2 Flow Rate FiO2 06/20/17 13:17 97.2 06/20/17 13:17 70 134/74 06/20/17 12:00 97.2 70 20 134/74 98 Room Air 97.2 06/20/17 10:04 96.1 06/20/17 09:05 96.1 06/20/17 08:10 73 18 Room Air 21 06/20/17 08:00 70 06/20/17 08:00 97.5 75 19 155/76 95 97.5 06/20/17 04:00 70 06/20/17 04:00 77 135/81 95 06/20/17 00:00 96.1 83 20 152/79 94 Room Air 96.1 06/20/17 00:00 79 06/19/17 21:40 72 18 Room Air 21 06/19/17 20:00 97.7 71 20 136/67 93 Room Air 97.7 06/19/17 20:00 76 06/19/17 16:00 98.0 94 20 137/73 95 Room Air 98.0 06/19/17 16:00 68 Intake and Output 06/19/17 06/20/17 19:00 07:00 Intake Total 5675 ml Output Total 300 ml Balance 5375 ml IV Total 675 ml Other 5000 ml Output Urine Total 300 ml Stool Total 0 ml # Voids 8 5 Laboratory Tests Test 06/20/17 11:45 White Blood Count 5.1 K/UL (4.8-10.8) Red Blood Count 4.27 M/UL (4.20-5.40) Hemoglobin 12.4 G/DL (12.0-16.0) Hematocrit 37.4 % (37.0-47.0) Mean Corpuscular Volume 88 FL (80-99) Mean Corpuscular Hemoglobin 29.0 PG (27.0-31.0) Mean Corpuscular Hemoglobin Concent 33.2 G/DL (32.0-36.0) Red Cell Distribution Width 13.1 % (11.6-14.8) Platelet Count 163 K/UL (150-450) Mean Platelet Volume 9.7 FL (6.5-10.1) Neutrophils (%) (Auto) 57.8 % (45.0-75.0) Lymphocytes (%) (Auto) 28.3 % (20.0-45.0) Monocytes (%) (Auto) 10.8 % (1.0-10.0) H Eosinophils (%) (Auto) 1.9 % (0.0-3.0) Basophils (%) (Auto) 1.1 % (0.0-2.0) Sodium Level 137 MMOL/L (136-145) Potassium Level 4.5 MMOL/L (3.5-5.1) Chloride Level 102 MMOL/L (98-107) Carbon Dioxide Level 28 MMOL/L (21-32) Anion Gap 7 mmol/L (5-15) Blood Urea Nitrogen 28 mg/dL (7-18) H Creatinine 1.2 MG/DL (0.55-1.30) Estimat Glomerular Filtration Rate mL/min (>60) Glucose Level 110 MG/DL (74-106) H Calcium Level 9.4 MG/DL (8.5-10.1) Pro-B-Type Natriuretic Peptide Pending Height (Feet): 5 Height (Inches): 3.00 Weight (Pounds): 160 Medications Current Medications Medications (Trade) Dose Ordered Sig/Mya Route PRN Reason Start Time Stop Time Status Last Admin Dose Admin Acetaminophen (Tylenol) 650 mg Q4H PRN ORAL fever 06/18/17 17:15 07/18/17 17:14 Acetaminophen (Tylenol) 1,000 mg TID ORAL 06/19/17 13:00 07/18/17 17:14 06/20/17 13:17 Al Hydroxide/Mg Hydroxide (Mylanta II) 30 ml Q6H PRN ORAL dyspepsia 06/18/17 17:15 07/18/17 17:14 Albuterol/ Ipratropium (Albuterol/ Ipratropium) 3 ml Q4H PRN HHN Shortness of Breath 06/18/17 17:16 06/23/17 17:15 Amlodipine Besylate (Norvasc) 5 mg DAILY ORAL 06/20/17 12:00 07/20/17 11:59 06/20/17 13:17 Aspirin (ASA) 81 mg DAILY ORAL 06/19/17 09:00 07/19/17 08:59 06/20/17 09:05 Bisacodyl (Dulcolax) 10 mg DAILYPRN PRN RECTAL Constipation (2ND LINE) 06/18/17 17:30 07/18/17 17:14 Ceftriaxone Sodium 1 gm/ Dextrose 55 ml @ 110 mls/hr Q24H IVPB 06/20/17 04:00 06/27/17 03:59 06/20/17 04:00 Dextrose (Dextrose 50%) 25 ml STAT PRN IV BS 60-69mg/dl 06/18/17 17:19 07/18/17 17:18 Dextrose (Dextrose 50%) 50 ml STAT PRN IV BS less than 60mg/dl 06/18/17 17:00 07/18/17 16:59 Docusate Sodium (Colace) 100 mg EVERY 12 HOURS ORAL 06/18/17 21:00 07/18/17 20:59 06/20/17 09:05 Famotidine (Pepcid I.v.) 20 mg DAILY IVP 06/20/17 09:00 07/20/17 08:59 06/20/17 09:30 Fluoxetine HCl (PROzac) 20 mg DAILY ORAL 06/20/17 12:00 07/20/17 11:59 06/20/17 13:16 Heparin Sodium (Porcine) (Heparin 5000 units/ml) 5,000 units EVERY 12 HOURS SUBQ 06/18/17 21:00 07/18/17 20:59 06/20/17 09:11 Levothyroxine Sodium (Synthroid) 75 mcg ACBREAKFAST ORAL 06/20/17 06:30 07/20/17 06:29 06/20/17 06:27 Lidocaine (Lidoderm 5% PATCH) 1 patch Q24H TDERMAL 06/18/17 18:00 07/18/17 17:59 06/18/17 18:37 Nitroglycerin (Ntg) 0.4 mg Q5M PRN SL Prn Chest Pain 06/18/17 17:00 07/18/17 16:59 Ondansetron HCl (Zofran) 4 mg Q6H PRN IVP Nausea & Vomiting 06/18/17 17:18 07/18/17 17:17 Pantoprazole (Protonix) 40 mg DAILY ORAL 06/20/17 09:00 07/20/17 08:59 06/20/17 09:04 Polyethylene Glycol (Miralax) 17 gm DAILYPRN PRN ORAL Constipation (1ST LINE) 06/18/17 17:22 07/18/17 17:21 Sodium Chloride 1,000 ml @ 75 mls/hr [id number] IV 06/18/17 17:30 07/18/17 17:29 06/20/17 09:28 Tramadol HCl (Ultram) 50 mg Q6H PRN ORAL moderate to severe pain(4-10) 06/19/17 11:30 06/26/17 11:29 06/20/17 00:52 Assessment/Plan Status: stable Assessment/Plan Anxiety d/o mdd ativan Teetee Talley M.D. Jun 20, 2017 13:37
--- NOTE | 2017-06-20 13:39 | General Progress Note ---
Assessment/Plan Assessment/Plan Anxiety d/o mdd dc ativan prn prozac 20mg qam Subjective Date patient seen: Jun 20, 2017 Neurologic/Psychiatric: Reports: anxiety, depressed, emotional problems Allergies: Coded Allergies: No Known Allergies (Unverified , 06/18/17) Subjective the pt was more confused still anxious Objective Last 24 Hour Vital Signs Date Time Temp Pulse Resp B/P (MAP) Pulse Ox O2 Delivery O2 Flow Rate FiO2 06/20/17 13:17 97.2 06/20/17 13:17 70 134/74 06/20/17 12:00 97.2 70 20 134/74 98 Room Air 97.2 06/20/17 10:04 96.1 06/20/17 09:05 96.1 06/20/17 08:10 73 18 Room Air 21 06/20/17 08:00 70 06/20/17 08:00 97.5 75 19 155/76 95 97.5 06/20/17 04:00 70 06/20/17 04:00 77 135/81 95 06/20/17 00:00 96.1 83 20 152/79 94 Room Air 96.1 06/20/17 00:00 79 06/19/17 21:40 72 18 Room Air 21 06/19/17 20:00 97.7 71 20 136/67 93 Room Air 97.7 06/19/17 20:00 76 06/19/17 16:00 98.0 94 20 137/73 95 Room Air 98.0 06/19/17 16:00 68 Intake and Output 06/19/17 06/20/17 19:00 07:00 Intake Total 5675 ml Output Total 300 ml Balance 5375 ml IV Total 675 ml Other 5000 ml Output Urine Total 300 ml Stool Total 0 ml # Voids 8 5 Laboratory Tests 06/20/17 11:45: White Blood Count 5.1, Red Blood Count 4.27, Hemoglobin 12.4, Hematocrit 37.4, Mean Corpuscular Volume 88, Mean Corpuscular Hemoglobin 29.0, Mean Corpuscular Hemoglobin Concent 33.2, Red Cell Distribution Width 13.1, Platelet Count 163, Mean Platelet Volume 9.7, Neutrophils (%) (Auto) 57.8, Lymphocytes (%) (Auto) 28.3, Monocytes (%) (Auto) 10.8H, Eosinophils (%) (Auto) 1.9, Basophils (%) ( Auto) 1.1, Sodium Level 137, Potassium Level 4.5, Chloride Level 102, Carbon Dioxide Level 28, Anion Gap 7, Blood Urea Nitrogen 28H, Creatinine 1.2, Estimat Glomerular Filtration Rate , Glucose Level 110H, Calcium Level 9.4, Pro-B-Type Natriuretic Peptide 726H Height (Feet): 5 Height (Inches): 3.00 Weight (Pounds): 160 General Appearance: no apparent distress, alert Neurologic: depressed affect Teetee Hook M.D. Jun 20, 2017 13:39
--- NOTE | 2017-06-20 14:51 | Cardiac Electrophysiology PN ---
Assessment/Plan Status Narrative Acute nondisplaced fracture involving the lower sternum. Assessment/Plan 1. Chest wall tenderness. The patient was ruled out for myocardial infarction. The chest CT shows Acute nondisplaced fracture involving the lower sternum.Echocardiogram showed EF 55%. The chest x-ray also showed no acute disease. 2. Questionable history of atrial fibrillation, currently in sinus rhythm and is off anticoagulation. 3. Chronic obstructive pulmonary disease, on albuterol. 4. Right eye blindness. 5. Depression/ Anxiety per Dr Monster MCLEOD RN Subjective Subjective No event over night. On Tele. Objective Last 24 Hour Vital Signs Date Time Temp Pulse Resp B/P (MAP) Pulse Ox O2 Delivery O2 Flow Rate FiO2 06/20/17 13:17 97.2 06/20/17 13:17 70 134/74 06/20/17 12:00 97.2 70 20 134/74 98 Room Air 97.2 06/20/17 12:00 67 06/20/17 10:04 96.1 06/20/17 09:05 96.1 06/20/17 08:10 73 18 Room Air 21 06/20/17 08:00 70 06/20/17 08:00 97.5 75 19 155/76 95 97.5 06/20/17 04:00 70 06/20/17 04:00 77 135/81 95 06/20/17 00:00 96.1 83 20 152/79 94 Room Air 96.1 06/20/17 00:00 79 06/19/17 21:40 72 18 Room Air 21 06/19/17 20:00 97.7 71 20 136/67 93 Room Air 97.7 06/19/17 20:00 76 06/19/17 16:00 98.0 94 20 137/73 95 Room Air 98.0 06/19/17 16:00 68 Intake and Output 06/19/17 06/20/17 19:00 07:00 Intake Total 5675 ml Output Total 300 ml Balance 5375 ml IV Total 675 ml Other 5000 ml Output Urine Total 300 ml Stool Total 0 ml # Voids 8 5 Laboratory Tests Test 06/20/17 11:45 White Blood Count 5.1 K/UL (4.8-10.8) Red Blood Count 4.27 M/UL (4.20-5.40) Hemoglobin 12.4 G/DL (12.0-16.0) Hematocrit 37.4 % (37.0-47.0) Mean Corpuscular Volume 88 FL (80-99) Mean Corpuscular Hemoglobin 29.0 PG (27.0-31.0) Mean Corpuscular Hemoglobin Concent 33.2 G/DL (32.0-36.0) Red Cell Distribution Width 13.1 % (11.6-14.8) Platelet Count 163 K/UL (150-450) Mean Platelet Volume 9.7 FL (6.5-10.1) Neutrophils (%) (Auto) 57.8 % (45.0-75.0) Lymphocytes (%) (Auto) 28.3 % (20.0-45.0) Monocytes (%) (Auto) 10.8 % (1.0-10.0) H Eosinophils (%) (Auto) 1.9 % (0.0-3.0) Basophils (%) (Auto) 1.1 % (0.0-2.0) Sodium Level 137 MMOL/L (136-145) Potassium Level 4.5 MMOL/L (3.5-5.1) Chloride Level 102 MMOL/L (98-107) Carbon Dioxide Level 28 MMOL/L (21-32) Anion Gap 7 mmol/L (5-15) Blood Urea Nitrogen 28 mg/dL (7-18) H Creatinine 1.2 MG/DL (0.55-1.30) Estimat Glomerular Filtration Rate mL/min (>60) Glucose Level 110 MG/DL (74-106) H Calcium Level 9.4 MG/DL (8.5-10.1) Pro-B-Type Natriuretic Peptide 726 pg/mL (0-125) H Microbiology Date/Time Source Procedure Growth Status 06/18/17 13:55 Urine,Clean Catch Urine Culture - Preliminary Mixed Gram Positive Organism Resulted Objective HEAD AND NECK: Showed no JVD. Her right eye is blind. LUNGS: Clear. CARDIOVASCULAR: Regular S1 and S2 with no gallop or murmur. The sternum area is very tender to touch. ABDOMEN: Soft. EXTREMITIES: No pitting edema. Fortino Gonzalez MD Jun 20, 2017 14:51
[2017-06-20 16:00] VITALS: BP 143/78
[2017-06-20 20:00] VITALS: BP 134/69
--- NOTE | 2017-06-20 22:59 | General Progress Note ---
Assessment/Plan Problem List: (1) UTI (urinary tract infection) ICD Codes: N39.0 - Urinary tract infection, site not specified SNOMED: 83415700 Qualifiers: Qualified Codes: N30.00 - Acute cystitis without hematuria (2) Sternal fracture ICD Codes: S22.20XA - Unspecified fracture of sternum, initial encounter for closed fracture SNOMED: 74788333 Qualifiers: Qualified Codes: S22.20XA - Unspecified fracture of sternum, initial encounter for closed fracture (3) Hypothyroidism ICD Codes: E03.9 - Hypothyroidism, unspecified SNOMED: 46685410 (4) GERD (gastroesophageal reflux disease) ICD Codes: K21.9 - Gastro-esophageal reflux disease without esophagitis SNOMED: 814426052 (5) HTN (hypertension) ICD Codes: I10 - Essential (primary) hypertension SNOMED: 25266188 (6) Chest pain ICD Codes: R07.9 - Chest pain, unspecified SNOMED: 12395363 Qualifiers: Qualified Codes: R07.9 - Chest pain, unspecified (7) Lives with family SNOMED: 750422288 Status: stable Assessment/Plan CXR and CT chest on admit reviewed. Repeat CT chest showing acute nondisplaced fracture of lower sternum. Thoracic surgery consulted for further evaluation of sternal fracture EKG NSR. Trops x 3 negative. Check TTE --> 55-60% EF Cardiology consulted Empiric ceftriaxone for UTI (06/18-) F/u urine culture Pain control, bowel regimen Trial of lidocaine patch to area Supportive care PT/OT eval Possible d/c tomorrow pending thoracic surgery rec's and pain control DVT Prophylaxis: SCD, HSQ Code Status: Full Hospital Classification Declaration: Based on this initial evaluation, and depending on the patient's clinical course, I anticipate that this patient will require hospitalization for 1-3 days for chest pain, pain control, and close respiratory/hemodynamic monitoring. Disposition: Once the patient is stable to leave the hospital, I anticipate the patient will likely be discharged to the following environment: home with HH vs SNF I spent 31 minutes on this patient's case, and >50% was dedicated to counseling and/or care coordination. Discussed with patient/family, nursing staff, SW/CM, cardiology, thoracic surgery, treatment course, and disposition planning. Time of note may not reflect time of encounter. Subjective Date patient seen: Jun 20, 2017 Time patient seen: 11:00 Allergies: Coded Allergies: No Known Allergies (Unverified , 06/18/17) Subjective - repeat CT chest showing acute non-displaced fracture of lower sternum - continues to complain of lower sternum area pain. pain well controlled on tylenol - daughter refused stress test - AF, HDS Objective Last 24 Hour Vital Signs Date Time Temp Pulse Resp B/P (MAP) Pulse Ox O2 Delivery O2 Flow Rate FiO2 06/20/17 18:17 97.2 06/20/17 17:18 97.2 06/20/17 16:00 97.2 76 20 143/78 95 Room Air 97.2 06/20/17 16:00 60 06/20/17 13:17 97.2 06/20/17 13:17 70 134/74 06/20/17 12:00 97.2 70 20 134/74 98 Room Air 97.2 06/20/17 12:00 67 06/20/17 09:05 96.1 06/20/17 08:10 73 18 Room Air 21 06/20/17 08:00 70 06/20/17 08:00 97.5 75 19 155/76 95 97.5 06/20/17 04:00 70 06/20/17 04:00 77 135/81 95 06/20/17 00:00 96.1 83 20 152/79 94 Room Air 96.1 06/20/17 00:00 79 Intake and Output 06/19/17 06/20/17 19:00 07:00 Intake Total 5675 ml Output Total 300 ml Balance 5375 ml IV Total 675 ml Other 5000 ml Output Urine Total 300 ml Stool Total 0 ml # Voids 8 5 Laboratory Tests 06/20/17 11:45: White Blood Count 5.1, Red Blood Count 4.27, Hemoglobin 12.4, Hematocrit 37.4, Mean Corpuscular Volume 88, Mean Corpuscular Hemoglobin 29.0, Mean Corpuscular Hemoglobin Concent 33.2, Red Cell Distribution Width 13.1, Platelet Count 163, Mean Platelet Volume 9.7, Neutrophils (%) (Auto) 57.8, Lymphocytes (%) (Auto) 28.3, Monocytes (%) (Auto) 10.8H, Eosinophils (%) (Auto) 1.9, Basophils (%) ( Auto) 1.1, Sodium Level 137, Potassium Level 4.5, Chloride Level 102, Carbon Dioxide Level 28, Anion Gap 7, Blood Urea Nitrogen 28H, Creatinine 1.2, Estimat Glomerular Filtration Rate , Glucose Level 110H, Calcium Level 9.4, Pro-B-Type Natriuretic Peptide 726H Height (Feet): 5 Height (Inches): 3.00 Weight (Pounds): 160 General Appearance: alert, mild distress EENT: PERRL/EOMI, normal ENT inspection Neck: non-tender, normal alignment, supple Cardiovascular: normal peripheral pulses, normal rate, regular rhythm Respiratory/Chest: chest wall non-tender, lungs clear, normal breath sounds, other - reproducible tenderness to sternal chest region Abdomen: normal bowel sounds, non tender, soft Extremities: normal range of motion, non-tender Neurologic: economic manager II-XII grossly normal, no motor/sensory deficits, alert, oriented x 3 Skin: normal pigmentation, warm/dry Tanesha Alicea N.P. Jun 20, 2017 22:59
[2017-06-21] VITALS: BP 144/84
[2017-06-21 04:00] VITALS: BP 149/60
[2017-06-21] MEDS: cefTRIAXone 1 GM in D5W 55 ML IVPB SCH (05:43)
[2017-06-21 07:52] VITALS: BP 149/90
[2017-06-21] MEDS: Docusate 100mg cap ORAL SCH (08:41)
[2017-06-21] MEDS: Aspirin Baby 81mg ORAL SCH (08:41)
[2017-06-21] MEDS: Acetaminophen 500mg (ES) tab ORAL SCH ×2 (08:42→13:00)
[2017-06-21] MEDS: Heparin 5000 units/ml inj SUBQ SCH (08:56)
[2017-06-21 11:40] LABS: BASOPHILS % (AUTO) 1.1 % (0.0-2.0); HEMATOCRIT 40.3 % (37.0-47.0); HEMOGLOBIN 13.7 G/DL (12.0-16.0); LYMPHOCYTES % (AUTO) 23.8 % (20.0-45.0); MEAN CORPUSCULAR VOLUME 87 FL (80-99); MONOCYTES % (AUTO) 7.9 % (1.0-10.0); NEUTROPHILS % (AUTO) 66.2 % (45.0-75.0); PLATELET COUNT 202 K/UL (150-450); RED BLOOD COUNT 4.62 M/UL (4.20-5.40); RED CELL DISTRIBUTION WIDTH 13.2 % (11.6-14.8); WHITE BLOOD COUNT 5.4 K/UL (4.8-10.8)
[2017-06-21 11:49] LABS: ANION GAP 9 mmol/L (5-15); BLOOD UREA NITROGEN 25 mg/dL (7-18); CALCIUM 9.7 MG/DL (8.5-10.1); CARBON DIOXIDE 27 MMOL/L (21-32); CHLORIDE 102 MMOL/L (98-107); CREATININE 1.2 MG/DL (0.55-1.30); POTASSIUM 4.9 MMOL/L (3.5-5.1); SODIUM 138 MMOL/L (136-145)
[2017-06-21 12:00] VITALS: BP 147/75
--- NOTE | 2017-06-21 12:30 | Cardiac Electrophysiology PN ---
Assessment/Plan Status Narrative Acute nondisplaced fracture involving the lower sternum. Assessment/Plan 1. Chest wall tenderness. The patient was ruled out for myocardial infarction. The chest CT shows acute nondisplaced fracture involving the lower sternum. Echocardiogram showed EF 55%. The chest x-ray also showed no acute disease. Evaluated by Thoracic surgery. No Surgery indicated. 2. Questionable history of atrial fibrillation, currently in sinus rhythm and is off anticoagulation. 3. HTN On Norvasc 5 daily 4. Chronic obstructive pulmonary disease, on albuterol. 5. Right eye blindness. 6. Depression/ Anxiety per Dr Monster MCLEOD RN Subjective Subjective Still has sternal pain. Evaluated by thoracic surgery. On Tele. Objective Last 24 Hour Vital Signs Date Time Temp Pulse Resp B/P (MAP) Pulse Ox O2 Delivery O2 Flow Rate FiO2 06/21/17 09:48 97.7 06/21/17 08:43 78 149/90 06/21/17 08:42 97.7 06/21/17 08:23 78 18 Room Air 21 06/21/17 07:52 97.7 80 18 149/90 96 97.7 06/21/17 04:00 97.9 70 20 149/60 96 Room Air 97.9 06/21/17 04:00 75 06/21/17 00:00 97.3 72 20 144/84 93 Room Air 97.3 06/21/17 00:00 66 06/20/17 20:00 96.3 69 20 134/69 95 Room Air 96.3 06/20/17 20:00 65 06/20/17 19:00 75 18 Room Air 21 06/20/17 17:18 97.2 06/20/17 16:00 97.2 76 20 143/78 95 Room Air 97.2 06/20/17 16:00 60 06/20/17 13:17 97.2 06/20/17 13:17 70 134/74 Intake and Output 06/20/17 06/21/17 19:00 07:00 Intake Total 745 ml Output Total 900 ml Balance -155 ml Intake Oral 180 ml IV Total 565 ml Output Urine Total 900 ml # Voids 4 Laboratory Tests Test 06/21/17 11:25 White Blood Count 5.4 K/UL (4.8-10.8) Red Blood Count 4.62 M/UL (4.20-5.40) Hemoglobin 13.7 G/DL (12.0-16.0) Hematocrit 40.3 % (37.0-47.0) Mean Corpuscular Volume 87 FL (80-99) Mean Corpuscular Hemoglobin 29.7 PG (27.0-31.0) Mean Corpuscular Hemoglobin Concent 34.1 G/DL (32.0-36.0) Red Cell Distribution Width 13.2 % (11.6-14.8) Platelet Count 202 K/UL (150-450) Mean Platelet Volume 9.3 FL (6.5-10.1) Neutrophils (%) (Auto) 66.2 % (45.0-75.0) Lymphocytes (%) (Auto) 23.8 % (20.0-45.0) Monocytes (%) (Auto) 7.9 % (1.0-10.0) Eosinophils (%) (Auto) 1.0 % (0.0-3.0) Basophils (%) (Auto) 1.1 % (0.0-2.0) Sodium Level 138 MMOL/L (136-145) Potassium Level 4.9 MMOL/L (3.5-5.1) Chloride Level 102 MMOL/L (98-107) Carbon Dioxide Level 27 MMOL/L (21-32) Anion Gap 9 mmol/L (5-15) Blood Urea Nitrogen 25 mg/dL (7-18) H Creatinine 1.2 MG/DL (0.55-1.30) Estimat Glomerular Filtration Rate mL/min (>60) Glucose Level 101 MG/DL (74-106) Calcium Level 9.7 MG/DL (8.5-10.1) Microbiology Date/Time Source Procedure Growth Status 06/18/17 13:55 Urine,Clean Catch Urine Culture - Final Mixed Gram Positive Organism Complete Objective HEAD AND NECK: No JVD. Her right eye is blind. LUNGS: Clear. CARDIOVASCULAR: Regular S1 and S2 with no gallop or murmur. The sternum area is very tender to touch. ABDOMEN: Soft. EXTREMITIES: No pitting edema. Fortino Gonzalez MD Jun 21, 2017 12:30
[2017-06-21] MEDS ORDERED: 1/2 NS 1000ml IV ONE (14:54)
[2017-06-21] MEDS ORDERED: CEPHALEXIN500 MG ORAL (15:01)
[2017-06-21] MEDS ORDERED: LIDODERM700 M1 TDERMAL (15:01)
[2017-06-21] MEDS ORDERED: TRAMADOL HCL50 MG ORAL (15:01)
[2017-06-21 16:00] VITALS: BP 145/73
--- NOTE | 2017-06-21 19:00 | Consultation ---
DATE OF CONSULTATION: 06/21/2017 CONSULTING PHYSICIAN: Bryan Roque M.D., Thoracic Surgery. REFERRING PHYSICIAN: Ladan Oakley M.D. HISTORY OF PRESENT ILLNESS: The patient is an 86-year-old female status post fall who presented to the emergency room at [facility] complaining of substernal chest pain. Workup including a chest CT scan demonstrated a lower sternal fracture and Thoracic surgery was consulted for further evaluation. PAST MEDICAL HISTORY: Notable for, 1. Hypertension. 2. Gastroesophageal reflux disease. 3. Hypothyroidism. PAST SURGICAL HISTORY: None. MEDICATIONS: Reviewed. ALLERGIES: No known drug allergies. FAMILY AND SOCIAL HISTORY: Noncontributory. PHYSICAL EXAMINATION: VITAL SIGNS: She is noted to be afebrile. Her vitals are within normal limits. CARDIAC: Regular rate and rhythm. No gallops or murmur. RESPIRATORY: Clear to auscultation bilaterally. There is tenderness palpated at the level of T4 through T6. ABDOMEN: Soft, nondistended, and nontender with normoactive bowel sounds. EXTREMITIES: No evidence of cyanosis, clubbing, or edema. LABORATORY AND DIAGNOSTIC DATA: Laboratory studies performed on 06/20/2017 showed WBC of 5.1, hemoglobin 12, hematocrit of 37, and platelet count is 163. Sodium is 137, potassium is 4.5, chloride is 102, bicarbonate is 28, BUN is 28, creatinine is 1.2 and glucose is 110. A chest CT scan was performed on 06/19/2017, which demonstrated a 2 mm step-off along the posterior margin of the lower sternum. This is a nondisplaced fracture involving the lower sternum. There is no evidence of adjacent hematoma. ASSESSMENT AND PLAN: This is an 86-year-old female, status post fall who presented with an acute nondisplaced fracture of the lower sternum. The patient was evaluated at bedside. After reviewing her clinical database, I recommend she undergo a blunt cardiac trauma workup. The substernal pain should be well controlled. There is no surgical indication indicated at the present time. I want to thank you for referring this patient to my attention. If there are any questions in regard to this patient's clinical care, please do not hesitate to contact me. Scott M.D. DR: ANTOINE JOB#: [id number] CC: ELA
--- NOTE | 2017-06-23 00:26 | Discharge Summary ---
Discharge Summary Hospital Course Date of Admission Jun 18, 2017 at 15:25 Date of Discharge Jun 21, 2017 at 16:08 Admitting Diagnosis CHEST PAIN ,R/O CORONARY SYNDROME HPI Miranda Colon is a 86 year old female who was admitted on Jun 18, 2017 at 15:25 for Shest Pain, Rule Out Coronary Syndrome 86y/o female with pmh of HTN, hypothyroidism GERD who presents with chest pain s /p fall. Per daughter, pt fell while in [place]. She may have tripped over a rug. Denies dizziness, chest pain, SOB prior to or during fall. She was able to catch herself. No LOC or head truama. She had chest pain afterwards described as sharp substernal pain w/o radiation. Unclear if hit chest or had force on chest due to catching self. Since that time she's had severe positional and exertional chest pain that's substernal. Pain is 10/10, severe drew when she moves or touches the area. Also w/ pain when taking a deep breath in. Denies f/c , n/v, d/c, SOB, abd pain, cough. In ED, CXR and CT chest showed no e/o acute abnormality. Daughter requesting MRI chest. Consultations Psychiatry, Dr. Hook Cardiology, Dr. Murillo Thoracic surgeon, Dr. Roque Hospital Course Patient was admitted to [facility]. EKG was done, which showed NSR and troponins x 3 were negative. TTE was done, which showed 55-60% EF with no wall motion abnormality. ACS was ruled out. Patient was also noted to be agitated and therefore psychiatry consultation was requested. Patient continued to have pain despite ACS being ruled out and a repeat CT chest was done with a focus on the sternal region. This showed an acute nondisplaced fracture of the lower sternum. Thoracic surgery consultation was requested and per thoracic surgeon, patient did not qualify for any surgical interventions and therefore only pain control and supportive care was recommended. Patient's pain was well controlled on extra strength tylenol. Patient was also noted to have a UTI and was started on IV CTX. Patient was therefore afebrile and hemodynamically stable prior to discharge. Discharge Medications New Medications: Cephalexin* (Keflex*) 500 Mg Capsule 500 MG ORAL EVERY 12 HOURS for 5 Days, #10 CAP 0 Refills Lidocaine (Lidoderm) 1 Each Adh..patch 1 PATCH TDERMAL Q24H for 14 Days, #14 PATCH Tramadol Hcl* (Ultram*) 50 Mg Tablet 50 MG ORAL Q6H PRN, #35 TAB Continued Medications: Amlodipine Besylate (Norvasc) 5 Mg Tablet 5 MG ORAL DAILY, TAB (This prescription has been renewed) Levothyroxine Sodium* (Levothyroxine Sodium*) 75 Mcg Tablet 75 MCG ORAL DAILY, TAB (This prescription has been renewed) Take in the morning on an empty stomach, at least 30 minutes before food. Omeprazole Magnesium (Prilosec Otc) 20 Mg Tablet.dr 20 MG ORAL DAILY, TAB (This prescription has been renewed) Discharge Condition Upon Discharge: improving Discharge Disposition Patient was discharged to Home with Home Health(06) Discharge Diagnoses: (1) Fracture of sternum (2) Chest pain (3) HTN (hypertension) (4) GERD (gastroesophageal reflux disease) (5) Hypothyroidism Tanesha Alicea N.P. Jun 23, 2017 00:26
--- NOTE | 2017-06-23 08:30 | Cardiology Report ---
APPROVED REPORT EXAM: Two-dimensional and M-mode echocardiogram with Doppler and color Doppler. M-Mode DIMENSIONS IVSd1.2 (0.7-1.1cm)Left Atrium (MM)3.2 (1.6-4.0cm) LVDd4.7 (3.5-5.6cm)Aortic Root3.3 (2.0-3.7cm) PWd1.2 (0.7-1.1cm)Aortic Cusp Exc.1.3 (1.5-2.0cm) IVSs1.8 cm LVDs3.3 (2.5-4.0cm) PWs1.3 cm Normal left ventricular chamber size, systolic function and wall motion to extent visualized. Left ventricular ejection fraction estimated to be 55-60 %. No evidence of left ventricular hypertrophy . No evidence of pericardial effusion. All other cardiac chamber sizes are within normal limits. Focal aortic valve sclerosis with reduced cusp excursion. Moderately Thickened mitral valve leaflets with normal excursion. Moderately Mitral annulus and aortic root calcification. Pulmonic valve not well visualized. Normal tricuspid valve structure. IVC at 1.8cm with physiologic collapse suggestive of increased RA pressure. A color flow and spectral Doppler study was performed and revealed: Mild aortic regurgitation. Peak aortic valve gradient of 15 mm Hg and a mean of 7 mmHg. Aortic valve area 1.6 cm2 calculated by continuity equation. Trace mitral regurgitation. Mitral diastolic velocities suggest reduced left ventricular relaxation c/w mild LV diastolic dysfunction (Grade I ) Trace tricuspid regurgitation. Tricuspid systolic velocities suggests peak right ventricular systolic pressure of 27 mmHg, No Pulmonic regurgitation present.
--- NOTE | 2017-06-23 23:58 | General Progress Note ---
Assessment/Plan Assessment/Plan Anxiety d/o mdd dc ativan prn prozac 20mg qam Subjective Allergies: Coded Allergies: No Known Allergies (Unverified , 06/18/17) Subjective the pt was more confused still anxious Objective Height (Feet): 5 Height (Inches): 3.00 Weight (Pounds): 160 Teetee Hook M.D. Jun 23, 2017 23:58
== END 2017-06-21 16:08 | disposition home health service (06) | DRG 184 ==
LOC: EDBD 12:56 → EMR 13:45 → 2E 15:25 → OBSVTOIN 15:25 → INTOOBSV 15:25 → EDBEDREQ 16:06 → 2E 17:04
DX: S22.20XA Unspecified fracture of sternum, initial encounter for closed fracture (principal); N39.0 Urinary tract infection, site not specified; W01.0XXA Fall on same level from slipping, tripping and stumbling without subsequent striking against object, initial encounter; Y92.000 Kitchen of unspecified non-institutional (private) residence as the place of occurrence of the external cause; I10 Essential (primary) hypertension; E03.9 Hypothyroidism, unspecified; K21.9 Gastro-esophageal reflux disease without esophagitis; H54.61 Unqualified visual loss, right eye, normal vision left eye; J44.9 Chronic obstructive pulmonary disease, unspecified; F41.8 Other specified anxiety disorders
CPT/HCPCS: 36415; 71045; 71250; 80048; 80053; 80061; 81003; 82550; 83036; 83735; 83880; 84443; 84484; 85025; 85610; 85730; 87086; 93005; 93306; 94664; 96360; 96361; 99285; J2405